=== PATIENT | female | born 1970 | race Caucasian/White ===

== ENCOUNTER → 2016-08-21 | Outpatient (CLI) | payer MEDICARE ==
[~2016-08-21] MED LIST: CIPRO500 M1 PO; CLONAZEPAM0.5 MG PO; EFFEXOR XR150 M1 PO; FLAGYL500 M1 PO; HUMULIN 70/30 720 ML SQ; HUMULIN N100 U/ML SC; LITHIUM CARBON600 MG PO; NORCO 325 MG-7.1 TA1 PO; PEPCID20 M1 PO; PERCOCET 325 MG1 TA2 PO; PHENERGAN 25 TA25 MG PO; PRILOSEC40 M1 PO; RANITIDINE HCL150 M1 PO; SEROQUEL 1100 MG/TAB PO; SEROQUEL100 MG PO; SEROQUEL300 M1 PO; SEROQUEL300 MG PO; ZOFRAN ODT8 M1 PO; ZYRTEC10 MG PO
== END ==
LOC: LAB 08:40
DX: J02.0 Streptococcal pharyngitis (principal)

== ENCOUNTER → 2016-11-12 | Outpatient (CLI) | payer MEDICARE ==
[2016-04-29 19:57] VITALS: BP 148/68
== END ==
LOC: LAB 16:23
DX: R42 Dizziness and giddiness (principal)

== ENCOUNTER → 2016-12-24 | Outpatient (CLI) | payer MEDICARE ==
[2016-04-29 19:57] VITALS: BP 148/68
== END ==
LOC: MAMMO 09:50
DX: Z12.31 Encounter for screening mammogram for malignant neoplasm of breast (principal)
CPT/HCPCS: G0202

== ENCOUNTER 2017-05-30 08:42 | Emergency (ER) | payer MEDICARE ==
[~2017-05-30] VITALS: Ht 165.1 cm; Wt 131.8 kg
[~2017-05-30 08:42] MED LIST changes: +ESKALITH; -LITHIUM CARBON600 MG PO
[2017-05-30] MEDS ORDERED: HYOSCYAMINE0.125 M7 PO (08:56)
[2017-05-30] MEDS ORDERED: AMITRIPTYLINE H25 M2 PO (08:56)
[2017-05-30] MEDS ORDERED: GABAPENTIN TAB600 MG PO (08:56)
[2017-05-30] MEDS ORDERED: DESYREL 50MG50 MG PO (08:56)
[2017-05-30 09:28] LABS: EOS # 0.2 (0.04-0.40); HEMATOCRIT 41.1 % (37.0-47.0); HEMOGLOBIN 13.6 g/dL (12.5-16.0); LYMPH# 1.3 (1.50-4.00); MEAN CELL VOLUME 86 fl (78-100); MEAN CORPUSCULAR HEMOGLOBIN 29 pg (27-31); MEAN CORPUSCULAR HGB CONC 33 g/dL (33-37); MEAN PLATELET VOLUME 9.1 fl (7.4-10.4); MONO # 0.4 (0.20-0.80); NEU # 4.2 (1.40-6.50); PLATELET COUNT 235 K/mm3 (130-400); RED BLOOD COUNT 4.78 M/mm3 (4.10-5.30); RED CELL DISTRIBUTION WIDTH 13.4 % (11.5-14.5); WHITE BLOOD COUNT 6.1 K/mm3 (4.8-10.8)
[2017-05-30 09:51] LABS: ALBUMIN 3.9 g/dL (3.5-5.0); CALCIUM 9.6 mg/dL (8.4-10.2); POTASSIUM 4.5 mmol/L (3.6-5.0); TOTAL BILIRUBIN 0.6 mg/dL (0.2-1.3); TOTAL PROTEIN 7.3 g/dL (6.3-8.2)
[2017-05-30 10:29] LABS: BUN/CREATININE RATIO 16.1 (6.0-26.0)
[2017-05-30 10:52] VITALS: BP 131/66
[2017-05-30] MEDS ORDERED: LEVSIN0.125 M2 PO (19:35)
== END 2017-05-30 10:54 | disposition home or self-care (01) ==
LOC: ED 08:42
PROVIDERS: Family Medicine
DX: E11.43 Type 2 diabetes mellitus with diabetic autonomic (poly)neuropathy (principal); K31.84 Gastroparesis; Z79.4 Long term (current) use of insulin; F31.9 Bipolar disorder, unspecified; K58.9 Irritable bowel syndrome, unspecified; E66.01 Morbid (severe) obesity due to excess calories; Z68.42 Body mass index [BMI] 45.0-49.9, adult
CPT/HCPCS: J2765

== ENCOUNTER 2017-05-30 15:57 | Emergency (ER) | payer MEDICARE ==
[~2017-05-30] VITALS: Ht 165.1 cm; Wt 131.8 kg
[~2017-05-30 15:57] MED LIST changes: +AMITRIPTYLINE H25 M2 PO; +DESYREL 50MG50 MG PO; +GABAPENTIN TAB600 MG PO; +HYOSCYAMINE0.125 M7 PO
[2017-05-30 17:16] LABS: EOS # 0.1 (0.04-0.40); EOS % 1.9 % (1.0-5.0); HEMATOCRIT 40.9 % (37.0-47.0); LYMPH# 1.5 (1.50-4.00); MEAN CELL VOLUME 85 fl (78-100); MEAN CORPUSCULAR HEMOGLOBIN 29 pg (27-31); MEAN CORPUSCULAR HGB CONC 34 g/dL (33-37); MEAN PLATELET VOLUME 9.8 fl (7.4-10.4); MONO # 0.4 (0.20-0.80); NEU # 5.4 (1.40-6.50); PLATELET COUNT 241 K/mm3 (130-400); RED BLOOD COUNT 4.84 M/mm3 (4.10-5.30); RED CELL DISTRIBUTION WIDTH 13.2 % (11.5-14.5); WHITE BLOOD COUNT 7.4 K/mm3 (4.8-10.8)
[2017-05-30 17:28] LABS: URINE APPEARANCE CLEAR; URINE BILIRUBIN NEGATIVE (NEGATIVE); URINE COLOR YELLOW; URINE GLUCOSE NEGATIVE (NEGATIVE); URINE KETONE 1000 (NEGATIVE); URINE NITRATE NEGATIVE (NEGATIVE); URINE PROTEIN(semi-quant) TRACE mg/dL (NEGATIVE); URINE UROBILINOGEN NORMAL (NORMAL)
[2017-05-30 17:29] LABS: URINE BLOOD NEGATIVE (NEGATIVE); URINE LEUKOCYTE ESTERASE NEGATIVE (NEGATIVE)
[2017-05-30] MEDS ORDERED: LEVSIN0.125 M2 PO (19:35)
[2017-05-30 19:50] VITALS: BP 138/78
== END 2017-05-30 19:50 | disposition home or self-care (01) ==
LOC: ED 15:57
PROVIDERS: Family Medicine
DX: K58.9 Irritable bowel syndrome, unspecified (principal); E11.43 Type 2 diabetes mellitus with diabetic autonomic (poly)neuropathy; K31.84 Gastroparesis; F31.9 Bipolar disorder, unspecified; Z79.4 Long term (current) use of insulin
CPT/HCPCS: J0595; J1815; J7030

== ENCOUNTER 2017-06-01 12:26 | Emergency (ER) | payer MEDICARE ==
[~2017-06-01 12:26] MED LIST changes: +LEVSIN0.125 M2 PO
[2017-06-01] MEDS ORDERED: NORCO 325 MG-51 TA1 PO (13:36)
[2017-06-01 13:48] VITALS: BP 165/94
== END 2017-06-01 13:48 | disposition home or self-care (01) ==
LOC: ED 12:26
DX: G89.29 Other chronic pain (principal); K58.9 Irritable bowel syndrome, unspecified; E11.43 Type 2 diabetes mellitus with diabetic autonomic (poly)neuropathy; K31.84 Gastroparesis; F31.9 Bipolar disorder, unspecified; Z87.19 Personal history of other diseases of the digestive system

== ENCOUNTER 2017-06-05 22:52 | Emergency (ER) | payer MEDICARE ==
[~2017-06-05] VITALS: Ht 165.1 cm; Wt 131.8 kg
[~2017-06-05 22:52] MED LIST changes: +NORCO 325 MG-51 TA1 PO
[2017-06-06] MEDS ORDERED: BENTYL 10MG10 MG/CAP PO (00:45)
[2017-06-06] MEDS ORDERED: HYOSCYAMINE0.125 M7 PO (00:45)
[2017-06-06 00:55] VITALS: BP 135/76
== END 2017-06-06 00:55 | disposition home or self-care (01) ==
LOC: ED 22:52
DX: K58.0 Irritable bowel syndrome with diarrhea (principal); F31.9 Bipolar disorder, unspecified; E11.43 Type 2 diabetes mellitus with diabetic autonomic (poly)neuropathy; K31.84 Gastroparesis; Z79.4 Long term (current) use of insulin
CPT/HCPCS: J0595

== ENCOUNTER 2017-06-18 09:51 | Emergency (ER) | payer MEDICARE ==
[~2017-06-18] VITALS: Ht 165.1 cm; Wt 129.5 kg
[~2017-06-18 09:51] MED LIST changes: +BENTYL 10MG10 MG/CAP PO
[2017-06-18] MEDS ORDERED: ZOFRAN8 MG PO (11:57)
[2017-06-18] MEDS ORDERED: KETOROLAC10 MG PO (11:57)
[2017-06-18 12:04] VITALS: BP 135/70
== END 2017-06-18 12:03 | disposition home or self-care (01) ==
LOC: ED 09:51
DX: R10.84 Generalized abdominal pain (principal); R11.2 Nausea with vomiting, unspecified; E11.43 Type 2 diabetes mellitus with diabetic autonomic (poly)neuropathy; K31.84 Gastroparesis; K58.9 Irritable bowel syndrome, unspecified; Z79.4 Long term (current) use of insulin; F31.9 Bipolar disorder, unspecified; Z88.3 Allergy status to other anti-infective agents; Z91.018 Allergy to other foods
CPT/HCPCS: J1885; J2405

== ENCOUNTER 2017-06-25 07:50 | Emergency (ER) | payer MEDICARE ==
[~2017-06-25] VITALS: Ht 165.1 cm; Wt 129.5 kg
[~2017-06-25 07:50] MED LIST changes: +KETOROLAC10 MG PO; +ZOFRAN8 MG PO
[2017-06-25 08:36] LABS: HEMATOCRIT 42.2 % (37.0-47.0); HEMOGLOBIN 14.2 g/dL (12.5-16.0); MEAN CELL VOLUME 85 fl (78-100); MEAN CORPUSCULAR HEMOGLOBIN 29 pg (27-31); MEAN CORPUSCULAR HGB CONC 34 g/dL (33-37); MEAN PLATELET VOLUME 9.8 fl (7.4-10.4); PLATELET COUNT 258 K/mm3 (130-400); RED BLOOD COUNT 4.99 M/mm3 (4.10-5.30); RED CELL DISTRIBUTION WIDTH 13.2 % (11.5-14.5); WHITE BLOOD COUNT 8.1 K/mm3 (4.8-10.8)
[2017-06-25] MEDS ORDERED: EFFEXOR XR37.5 M2 PO (08:45)
[2017-06-25] MEDS ORDERED: LITHIUM CARBON300 M3 PO ×2 (08:46→08:47)
[2017-06-25 08:57] LABS: ALBUMIN 4.2 g/dL (3.5-5.0); BUN/CREATININE RATIO 18.9 (6.0-26.0); CALCIUM 9.3 mg/dL (8.4-10.2); POTASSIUM 4.5 mmol/L (3.6-5.0); TOTAL BILIRUBIN 1.3 mg/dL (0.2-1.3); TOTAL PROTEIN 7.7 g/dL (6.3-8.2)
[2017-06-25 09:00] LABS: BAND 1 % (0-10); LYMPHOCYTE 10 % (20-51); MONOCYTE 1 % (3-10); NEUTROPHILS 71 % (42-75)
[2017-06-25 09:24] LABS: URINE APPEARANCE CLEAR; URINE BILIRUBIN NEGATIVE (NEGATIVE); URINE BLOOD NEGATIVE (NEGATIVE); URINE COLOR YELLOW; URINE KETONE 1+ (NEGATIVE); URINE LEUKOCYTE ESTERASE NEGATIVE (NEGATIVE); URINE NITRATE NEGATIVE (NEGATIVE); URINE PROTEIN(semi-quant) NEGATIVE (NEGATIVE); URINE UROBILINOGEN NORMAL (NORMAL); URINE WBC 0-1 /hpf (0-3)
[2017-06-25 12:17] VITALS: BP 135/82
== END 2017-06-25 11:33 | disposition home or self-care (01) ==
LOC: ED 07:50
PROVIDERS: Physician Assistant
DX: F41.9 Anxiety disorder, unspecified (principal); G89.29 Other chronic pain; R10.31 Right lower quadrant pain; R10.32 Left lower quadrant pain; R10.11 Right upper quadrant pain; R10.2 Pelvic and perineal pain; R10.13 Epigastric pain; E11.9 Type 2 diabetes mellitus without complications; F31.9 Bipolar disorder, unspecified; K58.9 Irritable bowel syndrome, unspecified; E11.43 Type 2 diabetes mellitus with diabetic autonomic (poly)neuropathy; K31.84 Gastroparesis; Z88.3 Allergy status to other anti-infective agents; Z91.018 Allergy to other foods; Z79.4 Long term (current) use of insulin
CPT/HCPCS: J1885; J2405; Q9967

== ENCOUNTER → 2018-02-01 | Outpatient (CLI) | payer MEDICARE ==
[~2018-02-01] MED LIST changes: +EFFEXOR XR37.5 M2 PO; +LITHIUM CARBON300 M3 PO
== END ==
LOC: MAMMO 10:00
DX: Z12.31 Encounter for screening mammogram for malignant neoplasm of breast (principal)

== ENCOUNTER → 2018-03-03 | Outpatient (CLI) | payer MEDICARE | LOC: RAD 07:57 | DX: K76.0 Fatty (change of) liver, not elsewhere classified (principal) | CPT/HCPCS: Q9967 ==

== ENCOUNTER → 2018-05-05 | Outpatient (CLI) | payer MEDICARE | LOC: RAD 16:57 | DX: M79.644 Pain in right finger(s) (principal) ==

== ENCOUNTER → 2018-08-19 | Outpatient (CLI) | payer MEDICARE ==
[~2018-08-19] VITALS: Ht 165.1 cm; Wt 121.8 kg
[~2018-08-19] MED LIST changes: +BENADRYL; +BENTYL 20MG20 MG/TAB PO; +FISH OIL1 IU PO; +GOOD NEIGHBOR200 M1 PO; +LISINOPRIL10 MG PO; +NYSTATIN1 EAC2 MC; +PHENERGAN 25 TA25 MG; +TOPAMAX25 MG PO; +TRADJENTA5 MG PO; +[UNRECOGNIZED DRUG - REMARK] NS
[2018-08-19 18:38] VITALS: BP 124/80
[2018-08-19 18:39] VITALS: BP 124/80
[2018-08-19 20:31] VITALS: BP 132/78
--- NOTE | 2018-08-19 20:31 | NUR ---
CALL TO GUTIERREZ SINGH APRN TO DISCUSS RESULTS, GUTIERREZ ORDERS FOR PT TO STOP WITH THE ENEMAS FOLLOWING COMPLETION OF THE 3RD BAG, GO HOME, AND EXPECT FURTHER BM'S TO COME IN "WAVES", PT ALSO ORDERED TO TAKE DULCOLAX ORAL TABS X2 IN AM, PT ALSO OFFERED A DULCOLAX SUPPOSITORY BUT REQUESTS TO "BUY ONE AND DO IT HERSELF AT HOME," PT LEAVES IN STABLE CONDITION, MEDIUM AMOUNT OF STOOL ACHIEVED FOLLOWING X3 BAGS OF SOADSUDS ENEMA (3000ML)
== END ==
LOC: AMSURD 18:04
DX: K59.00 Constipation, unspecified (principal)

== ENCOUNTER → 2018-08-22 | Outpatient (CLI) | payer MEDICARE ==
[2018-08-19 20:31] VITALS: BP 132/78
[2018-08-22 12:58] LABS: EOS # 0.2 (0.04-0.40); EOS % 2.2 % (1.0-5.0); HEMATOCRIT 45.2 % (37.0-47.0); HEMOGLOBIN 15.5 g/dL (12.5-16.0); LYMPH# 1.9 (1.50-4.00); MEAN CELL VOLUME 84 fl (78-100); MEAN CORPUSCULAR HEMOGLOBIN 29 pg (27-31); MEAN CORPUSCULAR HGB CONC 34 g/dL (33-37); MEAN PLATELET VOLUME 9.9 fl (7.4-10.4); MONO # 0.5 (0.20-0.80); NEU # 5.5 (1.40-6.50); PLATELET COUNT 225 K/mm3 (130-400); RED BLOOD COUNT 5.39 M/mm3 (4.10-5.30); RED CELL DISTRIBUTION WIDTH 12.8 % (11.5-14.5)
[2018-08-22 14:04] LABS: CALCIUM 10.1 mg/dL (8.4-10.2); POTASSIUM 3.8 mmol/L (3.6-5.0)
== END ==
LOC: RAD 12:30
PROVIDERS: Nurse Practitioner Family
DX: K76.0 Fatty (change of) liver, not elsewhere classified (principal)
CPT/HCPCS: Q9967

== ENCOUNTER → 2018-12-12 | Outpatient (CLI) | payer MEDICARE ==
[2018-08-19 20:31] VITALS: BP 132/78
[2018-12-12 18:18] LABS: EOS # 0.3 (0.04-0.40); EOS % 4.5 % (1.0-5.0); HEMATOCRIT 43.3 % (37.0-47.0); HEMOGLOBIN 14.6 g/dL (12.5-16.0); LYMPH# 1.9 (1.50-4.00); MEAN CELL VOLUME 84 fl (78-100); MEAN CORPUSCULAR HEMOGLOBIN 28 pg (27-31); MEAN CORPUSCULAR HGB CONC 34 g/dL (33-37); MEAN PLATELET VOLUME 9.9 fl (7.4-10.4); MONO # 0.3 (0.20-0.80); NEU # 3.2 (1.40-6.50); PLATELET COUNT 241 K/mm3 (130-400); RED BLOOD COUNT 5.14 M/mm3 (4.10-5.30); RED CELL DISTRIBUTION WIDTH 12.5 % (11.5-14.5); WHITE BLOOD COUNT 5.5 K/mm3 (4.8-10.8)
[2018-12-12 18:40] LABS: ALBUMIN 4.2 g/dL (3.5-5.0); CALCIUM 9.9 mg/dL (8.3-10.5); TOTAL BILIRUBIN 0.4 mg/dL (0.2-1.2); TOTAL PROTEIN 7.5 g/dL (6.4-8.3)
== END ==
LOC: LAB 17:58
PROVIDERS: Family Medicine
DX: E11.9 Type 2 diabetes mellitus without complications (principal); G25.81 Restless legs syndrome; E55.9 Vitamin D deficiency, unspecified; E53.9 Vitamin B deficiency, unspecified; E66.01 Morbid (severe) obesity due to excess calories; Z79.899 Other long term (current) drug therapy; Z79.4 Long term (current) use of insulin

== ENCOUNTER → 2019-01-24 | Outpatient (CLI) | payer MEDICARE ==
[2018-08-19 20:31] VITALS: BP 132/78
== END ==
LOC: LAB 17:19
DX: K59.00 Constipation, unspecified (principal); R19.4 Change in bowel habit

== ENCOUNTER → 2019-01-31 | Outpatient (CLI) | payer MEDICARE ==
[2018-08-19 20:31] VITALS: BP 132/78
== END ==
LOC: MAMMO 11:27
DX: Z12.31 Encounter for screening mammogram for malignant neoplasm of breast (principal)

== ENCOUNTER 2019-05-16 13:30 | Emergency (ER) | payer MEDICARE ==
[~2019-05-16 13:30] MED LIST changes: -BENADRYL; +BENADRYL PO; -CLONAZEPAM0.5 MG PO; -DESYREL 50MG50 MG PO; +DESYREL50 MG PO; -EFFEXOR XR37.5 M2 PO; -HUMULIN N100 U/ML SC; +INSULIN 70/3100 U/ML SQ; +KLONOPIN 0.5MG0.5 MG PO; -SEROQUEL 1100 MG/TAB PO; +SEROQUEL 200MG200 MG PO
[2019-05-16 14:15] LABS: EOS # 0.1 (0.04-0.40); EOS % 1.1 % (1.0-5.0); HEMATOCRIT 44.7 % (37.0-47.0); HEMOGLOBIN 15.1 g/dL (12.5-16.0); MEAN CELL VOLUME 83 fl (78-100); MEAN CORPUSCULAR HEMOGLOBIN 28 pg (27-31); MEAN CORPUSCULAR HGB CONC 34 g/dL (33-37); MEAN PLATELET VOLUME 9.5 fl (7.4-10.4); MONO # 0.3 (0.20-0.80); NEU # 6.9 (1.40-6.50); PLATELET COUNT 280 K/mm3 (130-400); RED BLOOD COUNT 5.36 M/mm3 (4.10-5.30); RED CELL DISTRIBUTION WIDTH 12.8 % (11.5-14.5); WHITE BLOOD COUNT 9.3 K/mm3 (4.8-10.8)
[2019-05-16 14:32] LABS: POTASSIUM 3.9 mmol/L (3.5-5.1)
[2019-05-16 14:33] LABS: CALCIUM 9.7 mg/dL (8.3-10.5)
[2019-05-16 14:35] LABS: TOTAL PROTEIN 7.1 g/dL (6.4-8.3)
[2019-05-16 14:36] LABS: TOTAL BILIRUBIN 0.6 mg/dL (0.2-1.2)
[2019-05-16] MEDS ORDERED: COLACE100 M1 PO (16:08)
[2019-05-16] MEDS ORDERED: DIFLUCAN100 M1 PO (16:09)
[2019-05-16 16:10] LABS: URINE APPEARANCE CLEAR; URINE COLOR YELLOW; URINE PROTEIN(semi-quant) TRACE mg/dL (NEGATIVE)
[2019-05-16 16:11] LABS: URINE BILIRUBIN NEGATIVE (NEGATIVE); URINE BLOOD NEGATIVE (NEGATIVE); URINE KETONE NEGATIVE (NEGATIVE); URINE LEUKOCYTE ESTERASE NEGATIVE (NEGATIVE); URINE MUCUS PRESENT (NOT PRESENT); URINE NITRATE NEGATIVE (NEGATIVE); URINE UROBILINOGEN NORMAL (NORMAL)
[2019-05-16] MEDS ORDERED: LITHIUM CARBON300 M3 PO ×2 (16:12)
[2019-05-16] MEDS ORDERED: METOCLOPRAMIDE H5 M1 PO (16:13)
[2019-05-16] MEDS ORDERED: MIRALAX119 GM PO (16:14)
[2019-05-16] MEDS ORDERED: REQUIP0.25 M1 PO (16:15)
[2019-05-16] MEDS ORDERED: TRIAMCINOLONE AC0.13 TOP (16:17)
[2019-05-16 16:53] VITALS: BP 112/54
== END 2019-05-16 16:58 | disposition home or self-care (01) ==
LOC: ED 13:30
PROVIDERS: Nurse Practitioner Family
DX: E11.43 Type 2 diabetes mellitus with diabetic autonomic (poly)neuropathy (principal); K31.84 Gastroparesis; K52.9 Noninfective gastroenteritis and colitis, unspecified; F31.9 Bipolar disorder, unspecified; Z98.890 Other specified postprocedural states; Z79.4 Long term (current) use of insulin
CPT/HCPCS: J1885; J2270; J2550; J7030

== ENCOUNTER → 2019-09-01 | Outpatient (CLI) | payer MEDICARE ==
[~2019-09-01] MED LIST changes: +COLACE100 M1 PO; +DIFLUCAN100 M1 PO; +METOCLOPRAMIDE H5 M1 PO; +MIRALAX119 GM PO; +REQUIP0.25 M1 PO; +TRIAMCINOLONE AC0.13 TOP
== END ==
LOC: RAD 08:17
DX: R10.9 Unspecified abdominal pain (principal)
CPT/HCPCS: Q9967

== ENCOUNTER 2019-09-07 18:31 | Emergency (ER) | payer MEDICARE ==
[~2019-09-07] VITALS: Ht 152.4 cm; Wt 121.4 kg
[2019-09-07] MEDS ORDERED: TRAMADOL 50 MG TAB PO (18:45)
[2019-09-07] MEDS ORDERED: PHENERGAN 25 TA25 MG PO (18:45)
[2019-09-07] MEDS ORDERED: GLUCOPHAGE PO (18:45)
[2019-09-07] MEDS ORDERED: LEVOTHYROXIN0.025 MG PO (18:45)
[2019-09-07 19:22] LABS: EOS # 0.2 (0.04-0.40); EOS % 3.1 % (1.0-5.0); HEMATOCRIT 44.4 % (37.0-47.0); HEMOGLOBIN 14.6 g/dL (12.5-16.0); LYMPH# 1.9 (1.50-4.00); MEAN CELL VOLUME 86 fl (78-100); MEAN CORPUSCULAR HEMOGLOBIN 28 pg (27-31); MEAN CORPUSCULAR HGB CONC 33 g/dL (33-37); MEAN PLATELET VOLUME 9.4 fl (7.4-10.4); MONO # 0.3 (0.20-0.80); NEU # 3.8 (1.40-6.50); PLATELET COUNT 254 K/mm3 (130-400); RED BLOOD COUNT 5.14 M/mm3 (4.10-5.30); RED CELL DISTRIBUTION WIDTH 13.3 % (11.5-14.5); WHITE BLOOD COUNT 6.2 K/mm3 (4.8-10.8)
[2019-09-07 19:28] LABS: POTASSIUM 4.2 mmol/L (3.5-5.1)
[2019-09-07 19:29] LABS: CALCIUM 9.5 mg/dL (8.3-10.5)
[2019-09-07 19:30] LABS: TOTAL PROTEIN 7.2 g/dL (6.4-8.3)
[2019-09-07 19:32] LABS: TOTAL BILIRUBIN 0.5 mg/dL (0.2-1.2)
[2019-09-07 19:56] LABS: LIPASE 17 U/L (8-78)
[2019-09-07 21:03] LABS: URINE APPEARANCE HAZY; URINE COLOR YELLOW; URINE PROTEIN(semi-quant) TRACE mg/dL (NEGATIVE)
[2019-09-07 21:04] LABS: URINE BILIRUBIN NEGATIVE (NEGATIVE); URINE BLOOD NEGATIVE (NEGATIVE); URINE KETONE NEGATIVE (NEGATIVE); URINE LEUKOCYTE ESTERASE TRACE (NEGATIVE); URINE NITRATE NEGATIVE (NEGATIVE); URINE UROBILINOGEN NORMAL (NORMAL)
[2019-09-07 21:24] VITALS: BP 136/71
== END 2019-09-07 21:24 | disposition other institution (70) ==
LOC: ED 18:31
PROVIDERS: Nurse Practitioner Family
DX: E11.43 Type 2 diabetes mellitus with diabetic autonomic (poly)neuropathy (principal); K31.84 Gastroparesis; E11.65 Type 2 diabetes mellitus with hyperglycemia; I10 Essential (primary) hypertension; K58.9 Irritable bowel syndrome, unspecified; F31.9 Bipolar disorder, unspecified; E03.9 Hypothyroidism, unspecified; Z79.4 Long term (current) use of insulin; Z79.1 Long term (current) use of non-steroidal anti-inflammatories (NSAID); Z88.1 Allergy status to other antibiotic agents
CPT/HCPCS: J1170; J1200; J1815; J1885; J2270; J2405; J2765; J7030

== ENCOUNTER 2019-09-07 21:24 | Observation (INO) | payer MEDICARE ==
[~2019-09-07] VITALS: Ht 165.1 cm; Wt 120.4 kg
[~2019-09-07 21:24] MED LIST changes: +GLUCOPHAGE PO; +LEVOTHYROXIN0.025 MG PO; +TRAMADOL 50 MG TAB PO
[2019-09-07 22:00] VITALS: BP 136/71
[2019-09-07 22:03] VITALS: BP 136/71
[2019-09-08 01:27] VITALS: BP 123/84
[2019-09-08 05:58] VITALS: BP 106/66
[2019-09-08 07:05] LABS: EOS # 0.5 (0.04-0.40); EOS % 4.4 % (1.0-5.0); HEMATOCRIT 43.1 % (37.0-47.0); HEMOGLOBIN 13.8 g/dL (12.5-16.0); LYMPH# 1.5 (1.50-4.00); MEAN CELL VOLUME 88 fl (78-100); MEAN CORPUSCULAR HEMOGLOBIN 28 pg (27-31); MEAN CORPUSCULAR HGB CONC 32 g/dL (33-37); MEAN PLATELET VOLUME 9.4 fl (7.4-10.4); MONO # 0.5 (0.20-0.80); NEU # 7.6 (1.40-6.50); PLATELET COUNT 230 K/mm3 (130-400); RED BLOOD COUNT 4.92 M/mm3 (4.10-5.30); RED CELL DISTRIBUTION WIDTH 13.5 % (11.5-14.5); WHITE BLOOD COUNT 10.1 K/mm3 (4.8-10.8)
[2019-09-08 07:21] LABS: POTASSIUM 4.4 mmol/L (3.5-5.1)
[2019-09-08 07:22] LABS: CALCIUM 8.2 mg/dL (8.3-10.5)
[2019-09-08 09:48] VITALS: BP 127/67
[2019-09-08 13:54] VITALS: BP 129/77
== END 2019-09-08 15:15 | disposition home or self-care (01) ==
LOC: MED/SURG 21:24
PROVIDERS: ADMIT Nurse Practitioner Family
DX: R10.84 Generalized abdominal pain (principal); E11.43 Type 2 diabetes mellitus with diabetic autonomic (poly)neuropathy; E11.65 Type 2 diabetes mellitus with hyperglycemia; K31.84 Gastroparesis; Z79.4 Long term (current) use of insulin; I10 Essential (primary) hypertension; E03.9 Hypothyroidism, unspecified; K58.9 Irritable bowel syndrome, unspecified; F31.9 Bipolar disorder, unspecified; F41.9 Anxiety disorder, unspecified; Z79.899 Other long term (current) drug therapy; Z88.1 Allergy status to other antibiotic agents
CPT/HCPCS: G0378; J1170; J1200; J1650; J1815; J1885; J2405; J2765; J7030

== ENCOUNTER → 2020-09-13 | Outpatient (CLI) | payer MEDICARE | LOC: RAD 09:54 | DX: R91.1 Solitary pulmonary nodule (principal); K76.0 Fatty (change of) liver, not elsewhere classified | CPT/HCPCS: Q9967 ==

== ENCOUNTER → 2021-02-05 | Outpatient (CLI) | payer MEDICARE | LOC: MAMMO 03-26 10:00 | DX: Z12.31 Encounter for screening mammogram for malignant neoplasm of breast (principal) ==

== ENCOUNTER → 2022-03-24 | Outpatient (CLI) | payer MEDICARE | LOC: MAMMO 10:45 | DX: Z12.31 Encounter for screening mammogram for malignant neoplasm of breast (principal) ==

== ENCOUNTER → 2022-09-10 | Outpatient (CLI) | payer MEDICARE ==
[~2022-09-10] MED LIST changes: +BACTRIM DS TAB1 EACH PO
== END ==
LOC: RAD 12:16
DX: R07.81 Pleurodynia (principal)

== ENCOUNTER → 2023-03-24 | Outpatient (CLI) | payer MEDICARE | LOC: MAMMO 09:11 | DX: Z12.31 Encounter for screening mammogram for malignant neoplasm of breast (principal); N64.89 Other specified disorders of breast ==

== ENCOUNTER → 2023-03-29 | Outpatient (CLI) | payer MEDICARE | LOC: MAMMO 06:57 | DX: N63.13 Unspecified lump in the right breast, lower outer quadrant (principal) ==

== ENCOUNTER → 2023-04-01 | Outpatient (CLI) | payer MEDICARE | LOC: RAD 12:15 | DX: N63.15 Unspecified lump in the right breast, overlapping quadrants (principal) | CPT/HCPCS: 15989; 15990; A4648 ==

== ENCOUNTER 2023-11-03 08:00 | Outpatient (RCR) | payer MEDICARE | END 2023-11-09 23:59 | LOC: OT 08:00 | DX: R29.898 Other symptoms and signs involving the musculoskeletal system (principal) ==

== ENCOUNTER → 2024-04-05 | Outpatient (CLI) | payer MEDICARE | LOC: MAMMO 10:30 | DX: Z12.31 Encounter for screening mammogram for malignant neoplasm of breast (principal) ==

== ENCOUNTER → 2024-05-31 | Outpatient (CLI) | payer MEDICARE | LOC: RAD 07:44 | DX: K76.0 Fatty (change of) liver, not elsewhere classified (principal); K58.1 Irritable bowel syndrome with constipation; K31.84 Gastroparesis ==